=== PATIENT | female | born 1955 | race Caucasian/White ===

== ENCOUNTER 2020-03-25 16:44 | Emergency (ER) | payer OTHER ==
[~2020-03-25] VITALS: Ht 165.1 cm; Wt 81.8 kg
[2020-03-25 16:45] VITALS: TEMP 97.6
[2020-03-25] MEDS ORDERED: ZOFRAN ODT4 MG PO ×3 (19:24→20:05)
[2020-03-25] MEDS ORDERED: BONINE25 MG PO ×3 (19:24→20:05)
[2020-03-25] MEDS ORDERED: VALIUM 2MG T2 MG/TAB PO ×3 (19:24→20:05)
[2020-03-25 19:35] VITALS: BP 109/67; PULSE 79
== END 2020-03-25 19:35 | disposition home or self-care (01) ==
LOC: COL.ER 16:44
DX: R42 Dizziness and giddiness (principal); F17.200 Nicotine dependence, unspecified, uncomplicated; Z20.822 Contact with and (suspected) exposure to COVID-19; Z88.0 Allergy status to penicillin
CPT/HCPCS: J3360